=== PATIENT | female | born 2000 | race Caucasian/White ===

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

== ENCOUNTER → 2019-03-16 | Outpatient (REF) | payer BC, OTHER | LOC: M LABDRAW1 13:48 | PROVIDERS: ATTEND Nurse Practitioner Family | DX: E23.0 Hypopituitarism (principal) ==

== ENCOUNTER → 2020-11-04 | Outpatient (CLI) | payer BC ==
[~2020-11-04] MED LIST changes: +LISI10TA22; -LISI10TA4; +PROHANCE 279.3MG/ML 15ML VIAL As Ordered ONE; +PROHANCE 279.3MG/ML 5ML VIAL As Ordered ONE
--- NOTE | 2020-11-05 08:47 | REP ---
INDICATION: BENIGN INTRACRANIAL HYPERTENSION. 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 study shows a right frontal craniotomy. COMPARISON: Comparison brain CT study 08 March 2018.. TECHNIQUE: Axial and sagittal imaging planes are utilized for T1 and T2-weighted scans. Sequences include spin-echo, fast spin echo, FLAIR, and diffusion weighted sequences. Post gadolinium enhanced imaging is acquired in all 3 planes. The gadolinium enhancement dose is 20 mL of intravenous ProHance. FINDINGS: Magnetic field susceptibility artifact is seen at several locations in the right frontal cranium consistent with prior right frontal craniotomy. No other bony calvarial lesion is seen. Craniocervical junction upper cervical cord are normal in appearance. There are 2 fairly sizable mucous retention cysts in the right maxillary sinus and 1 in the left maxillary sinus inferiorly. Otherwise, the paranasal sinuses appear clear. No intraorbital abnormality is seen. There is a linear tract lined by hemosiderin staining in the right frontal periventricular white matter which was likely related to a prior ventricular shunt. There does not appear to be a shunt in place. Lateral, 3rd and 4th ventricles are normal in size and position. No extra-axial fluid collection is seen. No abnormal dural thickening is appreciated. No mass or midline shift is observed. There is a curvilinear low T1 low T2 signal intensity area in the supraclinoid region of the right internal carotid artery which I suspect is a flow void. A right ICA aneurysm cannot be excluded. Conceivably, this could be related to previous surgical history. There is a calcification visible on CT study in the region of the dorsum sella. No other vascular abnormality is appreciated. If this represents an internal carotid artery aneurysm, it would be fairly large measuring 6-7 mm. MR angiography of the brain is recommended. The suprasellar cistern is not well seen on the precontrast study. Postcontrast imaging demonstrates abnormal contrast enhancement in the distribution of the optic chiasm. The contrast enhancement appears predominantly peripheral. No mehdi mass effect. The pituitary stalk is not visualized. No other abnormal contrast enhancement is appreciated. IMPRESSION: 1. Prior right frontal craniotomy with evidence of prior right frontal ventriculostomy tube tract. 2. Apparent curvilinear flow void in the supraclinoid segment of the right internal carotid artery rule out shields aneurysm versus postoperative artifact. 3. Abnormal contrast enhancement in the region of the optic chiasm, neuritis versus meningioma. RECOMMENDATION: MR angiography of the brain. The suprasellar cistern and optic chiasm may be better visualized by pituitary protocol MRI study with pre and postcontrast imaging. <Electronically signed by Zhen Reed > 11/05/20 [id number]
--- NOTE | 2020-11-05 09:03 | REP ---
INDICATION: BENIGN INTRACRANIAL HYPERTENSION. 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 study shows a frayed frontal craniotomy. COMPARISON: Comparison CT brain study March 08, 2018.. No other comparison studies available at this juncture. TECHNIQUE: Axial, coronal and sagittal imaging planes utilized. T1 and T2 weighted scans are included with without fat saturation. 20 mL of intravenous ProHance is administered and postcontrast imaging is acquired. FINDINGS: There are mucous retention cysts visible in the floor of the right maxillary sinus. Otherwise the visualized paranasal sinuses are clear. No intraorbital mass lesion is seen. The intraorbital segments of the optic nerves appear normal and symmetric with no abnormal nerve sheath or nerve enhancement appreciated. Extraocular muscles are normal in size and contour. Ocular globes are normal and symmetric. The distal internal carotid artery on the right appears dilated on pre and postcontrast images, rule out 7 mm aneurysm. There is an irregular 8 mm area of low T1 low T2 signal intensity material in the suprasellar cistern in the region of the optic chiasm. This corresponds with the calcification visible on CT study of the brain from March 08, 2018. Postcontrast images show heterogeneous, predominantly peripheral enhancement associated with this. A thin pituitary stalk is visible. I do not otherwise see the optic chiasm. IMPRESSION: 1. 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 2. There is a triangular 8 mm structure in the suprasellar cistern in the midline showing heterogeneous contrast enhancement and likely corresponding to a calcification density seen in this location on prior CT. Postoperative change versus residual optic chiasm lesion. <Electronically signed by Zhen Reed > 11/05/20 [id number]
== END ==
LOC: M RAD 15:51
PROVIDERS: ATTEND Ophthalmology
DX: G93.2 Benign intracranial hypertension (principal); J34.1 Cyst and mucocele of nose and nasal sinus; H47.49 Disorders of optic chiasm in (due to) other disorders
CPT/HCPCS: 70543; 70553; A9576

== ENCOUNTER 2022-03-11 01:24 | Emergency (ER) | payer BC ==
[~2022-03-11] VITALS: Ht 180.3 cm; Wt 136.4 kg
[~2022-03-11 01:24] MED LIST changes: -PROHANCE 279.3MG/ML 15ML VIAL As Ordered ONE; -PROHANCE 279.3MG/ML 5ML VIAL As Ordered ONE
[2022-03-11 01:27] VITALS: BP 183/105
== END 2022-03-11 03:56 | disposition left against medical advice (07) ==
LOC: M ED 01:24
DX: Z53.21 Procedure and treatment not carried out due to patient leaving prior to being seen by health care provider (principal)

== ENCOUNTER 2022-09-14 17:25 | Inpatient (IN) | payer BC, OTHER, SELFPAY ==
[~2022-09-14] VITALS: Ht 180.3 cm; Wt 137.7 kg
[~2022-09-14 17:25] MED LIST changes: -CORT10TA; +CORT10TA PO; -LISI10TA22; +LISI10TA22 PO
[2022-09-14] MEDS ORDERED: LEVO300T21 PO (19:01)
[2022-09-14] MEDS ORDERED: ACET-897 PO ×2 (19:03)
[2022-09-14] MEDS ORDERED: HOME MED LIST COMPLETE! XX SCH (19:05)
[2022-09-14 20:42] LABS: AMPHETAMINES LEVEL URINE NEGATIVE (NEGATIVE); BENZODIAZEPINES URINE NEGATIVE (NEGATIVE); CANNABINOIDS URINE NEGATIVE (NEGATIVE); PHENCYCLIDINE URINE NEGATIVE (NEGATIVE)
[2022-09-14 20:43] LABS: BARBITURATES URINE NEGATIVE (NEGATIVE); COCAINE METABOLITE URINE NEGATIVE (NEGATIVE); METHADONE URINE NEGATIVE (NEGATIVE); OPIATES URINE NEGATIVE (NEGATIVE)
[2022-09-14 20:49] LABS: MEAN CORPUSCULAR HEMOGLOBIN 30.6 pg (27.0-33.0); MEAN CORPUSCULAR HGB CONC 34.2 g/dl (32.0-36.5); MEAN CORPUSCULAR VOLUME 89.4 fl (80.0-96.0); PLATELET COUNT, AUTOMATED 204 10^3/uL (150-450); RED BLOOD COUNT 4.25 10^6/uL (4.00-5.40); WHITE BLOOD COUNT 5.6 10^3/uL (4.0-10.0)
[2022-09-14 21:23] LABS: ALBUMIN 3.9 G/DL (3.2-5.2); ALKALINE PHOSPHATASE 84 U/L (46-116); ALT/SGPT 75 U/L (7.0-40); AST/SGOT 67 U/L (<34); BILIRUBIN,TOTAL 3.6 MG/DL (0.3-1.2); BLOOD UREA NITROGEN 12 MG/DL (9-23); CALCIUM LEVEL 9.4 MG/DL (8.5-10.1); CARBON DIOXIDE LEVEL 28 MMOL/L (20-31); CHLORIDE LEVEL 109 MMOL/L (98-107); CREATININE FOR GFR 0.94 MG/DL (0.55-1.30); GLOMERULAR FILTRATION RATE > 60.0 (>60); GLUCOSE, FASTING 121 MG/DL (60-100); POTASSIUM SERUM 4.2 MMOL/L (3.5-5.1); SALICYLATE LEVEL < 3.0 MG/DL (<30); SODIUM LEVEL 143 MMOL/L (136-145); TOTAL PROTEIN 6.9 G/DL (5.7-8.2)
[2022-09-14 21:28] LABS: ACETAMINOPHEN LEVEL < 2.0 UG/ML (10.0-20.0)
[2022-09-14 21:39] LABS: HCG, SERUM QUALITATIVE NEGATIVE (NEGATIVE)
[2022-09-14] MEDS ORDERED: traZODone 50 MG TAB PO PRN (21:45)
[2022-09-14] MEDS ORDERED: ACETAMINOPHEN 500 MG TAB PO PRN (21:45)
[2022-09-14] MEDS ORDERED: MAALOX 30 ML SUSP *UDC PO PRN (21:45)
[2022-09-14] MEDS ORDERED: MOM 30ML SUSPENSION UDC PO PRN (21:45)
[2022-09-14 23:14] VITALS: BP 140/80
[2022-09-15] MEDS: LEVOTHYROXINE 150MCG TABLET (0.15MG) PO SCH (06:04)
[2022-09-15 06:42] VITALS: BP 135/78
[2022-09-15] MEDS: NICOTINE 21MG/24HR 1 EA TRANSDERMAL TD SCH (09:00)
[2022-09-15] MEDS: ACETAMINOPHEN 500 MG TAB PO PRN ×2 (09:34→21:18)
[2022-09-15] MEDS: DESMOPRESSIN 0.01% SCH (09:36)
[2022-09-15] MEDS ORDERED: INFLUENZA QUADRIVALENT PF VACCINE 0.5ML SYRINGE IM.IMMUN ONE (10:00)
[2022-09-15] MEDS: VENLAFAXINE **XR** 37.5 MG CAPSULE PO SCH (11:25)
[2022-09-15] MEDS: HYDROCORTISONE 10 MG TAB PO SCH ×2 (12:33→20:09)
[2022-09-15 12:34] LABS: FREE T4 0.45 NG/DL (0.89-1.76)
[2022-09-15 16:21] VITALS: BP 126/79
[2022-09-15] MEDS: diphenhydrAMINE 25MG CAP PO PRN (22:03)
[2022-09-15 23:43] VITALS: BP 134/89
[2022-09-16] MEDS: LEVOTHYROXINE 150MCG TABLET (0.15MG) PO SCH (06:17)
[2022-09-16 06:21] VITALS: BP 125/76
[2022-09-16] MEDS: NICOTINE 21MG/24HR 1 EA TRANSDERMAL TD SCH (07:51)
[2022-09-16] MEDS: DESMOPRESSIN 0.01% SCH (07:53)
[2022-09-16] MEDS: HYDROCORTISONE 10 MG TAB PO SCH (07:54)
[2022-09-16] MEDS: VENLAFAXINE **XR** 37.5 MG CAPSULE PO SCH (07:54)
[2022-09-16 09:20] LABS: ALBUMIN 4.2 G/DL (3.2-5.2); ALKALINE PHOSPHATASE 83 U/L (46-116); ALT/SGPT 56 U/L (7.0-40); AST/SGOT 44 U/L (<34); BILIRUBIN,TOTAL 3.8 MG/DL (0.3-1.2); BLOOD UREA NITROGEN 12 MG/DL (9-23); CALCIUM LEVEL 9.1 MG/DL (8.5-10.1); CARBON DIOXIDE LEVEL 25 MMOL/L (20-31); CHLORIDE LEVEL 108 MMOL/L (98-107); CREATININE FOR GFR 0.89 MG/DL (0.55-1.30); GLOMERULAR FILTRATION RATE > 60.0 (>60); GLUCOSE, FASTING 124 MG/DL (60-100); POTASSIUM SERUM 4.4 MMOL/L (3.5-5.1); SODIUM LEVEL 141 MMOL/L (136-145); TOTAL PROTEIN 7.2 G/DL (5.7-8.2)
[2022-09-16] MEDS: diphenhydrAMINE 25MG CAP PO PRN (12:08)
[2022-09-16] MEDS ORDERED: MECLIZINE 12.5 MG TAB PO PRN ×2 (15:00→22:37)
[2022-09-16 16:21] VITALS: BP 125/79
[2022-09-16 20:42] VITALS: BP 130/91
[2022-09-16 20:44] VITALS: BP 168/95
[2022-09-16 20:45] VITALS: BP 170/123
[2022-09-16] MEDS ORDERED: ANUSOL HC CREAM 30GM TOP SCH (21:00)
[2022-09-16] MEDS ORDERED: ONDANSETRON 4MG ORAL DISINTEGRATING TAB PO PRN (21:00)
[2022-09-16] MEDS ORDERED: TRAZ-252 PO (22:19)
[2022-09-16] MEDS ORDERED: MECL-136 PO (22:19)
[2022-09-16] MEDS ORDERED: NICO21PAT TD (22:19)
[2022-09-16] MEDS ORDERED: ONDA4TAB6 PO (22:19)
[2022-09-16] MEDS ORDERED: VENL37.598 PO (22:19)
[2022-09-16] MEDS ORDERED: IBUPROFEN 400MG TAB PO PRN (22:37)
[2022-09-16] MEDS ORDERED: ACETAMINOPHEN TAB 650MG DOSE (2X325MG) PO PRN (22:37)
[2022-09-17] MEDS ORDERED: LEVOTHYROXINE 150MCG TABLET (0.15MG) PO SCH (06:00)
[2022-09-17] MEDS ORDERED: LEVOTHYROXINE 100MCG TABLET (0.1MG) PO SCH (06:00)
[2022-09-17] MEDS ORDERED: HYDROCORTISONE 5MG TABLET PO SCH ×2 (09:00→14:00)
[2022-09-17] MEDS ORDERED: DESMOPRESSIN 0.01% SCH (09:00)
[2022-09-17] MEDS ORDERED: DESMOPRESSIN 0.01% ONE (21:00)
[2022-09-18] MEDS ORDERED: CORT5TAB2 PO ×2 (13:43)
[2022-09-18] MEDS ORDERED: METO1TAB87 PO ×2 (13:43→14:13)
[2022-09-18] MEDS ORDERED: LEVO125T4 PO (13:43)
[2022-09-18] MEDS ORDERED: IBUP-1114 PO (14:13)
[2022-09-18] MEDS ORDERED: ASPI81TAEC PO (14:13)
[2022-09-18] MEDS ORDERED: DESM10SP (14:13)
[2022-09-18] MEDS ORDERED: PROT20TA11 PO (14:13)
[2022-09-18 18:28] VITALS: BP 123/84
[2022-09-18] MEDS: DOCUSATE SODIUM 100MG CAPSULE PO SCH (20:09)
[2022-09-18] MEDS: METOPROLOL TART 12.5 MG PER 1/2 TAB PO SCH (20:09)
[2022-09-18] MEDS ORDERED: DESMOPRESSIN 0.01% SCH (21:00)
[2022-09-18] MEDS: DESMOPRESSIN 0.01% SCH (21:56)
[2022-09-19] MEDS ORDERED: LEVOTHYROXINE 125MCG TABLET (0.125MG) PO SCH (06:00)
[2022-09-19 06:45] VITALS: BP 135/83
[2022-09-19] MEDS: DOCUSATE SODIUM 100MG CAPSULE PO SCH ×2 (08:21→20:48)
[2022-09-19] MEDS: ASPIRIN 81MG ENTERIC TABLET PO SCH (08:21)
[2022-09-19] MEDS: HYDROCORTISONE 5MG TABLET PO SCH ×2 (08:22→13:38)
[2022-09-19] MEDS: VENLAFAXINE **XR** 37.5 MG CAPSULE PO SCH (08:22)
[2022-09-19] MEDS: METOPROLOL TART 12.5 MG PER 1/2 TAB PO SCH ×2 (08:23→20:48)
[2022-09-19] MEDS ORDERED: hydrOXYzine 50 MG TAB PO PRN (10:40)
[2022-09-19] MEDS ORDERED: MAALOX 30 ML SUSP *UDC PO PRN (15:15)
[2022-09-19] MEDS ORDERED: MOM 30ML SUSPENSION UDC PO PRN (15:15)
[2022-09-19 16:19] VITALS: BP 131/83
[2022-09-19] MEDS: DESMOPRESSIN 0.01% SCH (20:47)
[2022-09-20] MEDS: LEVOTHYROXINE 125MCG TABLET (0.125MG) PO SCH (06:10)
[2022-09-20] MEDS: LEVOTHYROXINE 100MCG TABLET (0.1MG) PO SCH (06:10)
[2022-09-20 06:52] VITALS: BP 143/91
[2022-09-20 08:45] VITALS: BP 160/112
[2022-09-20] MEDS: HYDROCORTISONE 5MG TABLET PO SCH ×2 (09:29→13:58)
[2022-09-20] MEDS: DOCUSATE SODIUM 100MG CAPSULE PO SCH ×2 (09:30→21:00)
[2022-09-20] MEDS: ASPIRIN 81MG ENTERIC TABLET PO SCH (09:30)
[2022-09-20] MEDS: VENLAFAXINE **XR** 37.5 MG CAPSULE PO SCH (09:30)
[2022-09-20] MEDS: METOPROLOL TART 25 MG TABLET PO SCH ×2 (09:31→22:18)
[2022-09-20 09:33] LABS: HEMATOCRIT 35.1 % (36.0-47.0); HEMOGLOBIN 12.4 g/dl (12.0-15.5); MEAN CORPUSCULAR HEMOGLOBIN 30.8 pg (27.0-33.0); MEAN CORPUSCULAR HGB CONC 35.3 g/dl (32.0-36.5); MEAN CORPUSCULAR VOLUME 87.3 fl (80.0-96.0); PLATELET COUNT, AUTOMATED 209 10^3/uL (150-450); RED BLOOD COUNT 4.02 10^6/uL (4.00-5.40); WHITE BLOOD COUNT 7.5 10^3/uL (4.0-10.0)
[2022-09-20 09:55] LABS: BLOOD UREA NITROGEN 15 MG/DL (9-23); CALCIUM LEVEL 8.9 MG/DL (8.5-10.1); CARBON DIOXIDE LEVEL 27 MMOL/L (20-31); CHLORIDE LEVEL 109 MMOL/L (98-107); CPK CREATINE PHOSPHOKINASE 265 U/L (34-145); CREATININE FOR GFR 0.84 MG/DL (0.55-1.30); GLOMERULAR FILTRATION RATE > 60.0 (>60); GLUCOSE, FASTING 83 MG/DL (60-100); MB/CK RELATIVE INDEX 0.37 (< OR =4); SODIUM LEVEL 141 MMOL/L (136-145)
[2022-09-20 16:30] VITALS: BP 116/75
[2022-09-20] MEDS: DESMOPRESSIN 0.01% SCH (22:18)
[2022-09-21] MEDS: LEVOTHYROXINE 100MCG TABLET (0.1MG) PO SCH (05:38)
[2022-09-21] MEDS: LEVOTHYROXINE 125MCG TABLET (0.125MG) PO SCH (05:38)
[2022-09-21 06:26] VITALS: BP 123/78
[2022-09-21] MEDS: VENLAFAXINE **XR** 37.5 MG CAPSULE PO SCH (08:51)
[2022-09-21] MEDS: HYDROCORTISONE 5MG TABLET PO SCH (08:54)
[2022-09-21] MEDS: METOPROLOL TART 25 MG TABLET PO SCH (08:54)
[2022-09-21 08:55] VITALS: BP 133/95
[2022-09-21] MEDS: ASPIRIN 81MG ENTERIC TABLET PO SCH (08:55)
[2022-09-21] MEDS: DOCUSATE SODIUM 100MG CAPSULE PO SCH (08:57)
[2022-09-21] MEDS ORDERED: HYDR50TA70 PO (12:18)
[2022-09-21] MEDS ORDERED: MECL-136 PO (12:18)
[2022-09-21] MEDS ORDERED: VENL37.598 PO (12:18)
[2022-09-21] MEDS ORDERED: ASPI81TAEC PO (12:18)
[2022-09-21] MEDS ORDERED: METO1TAB87 PO (12:18)
[2022-09-21] MEDS ORDERED: LISI10TA22 PO (12:18)
[2022-09-21] MEDS ORDERED: DESM10SP (12:18)
== END 2022-09-21 13:21 | disposition home or self-care (01) | DRG 754 ==
LOC: M ED 17:25 → M ED INP 21:42 → M PSY 23:29 → UNDODISIN 09-16 22:37 → M PSY 09-18 17:21
PROVIDERS: ADMIT Student in an Organized Health Care Education/Training Program; ATTEND Student in an Organized Health Care Education/Training Program
DX: F32.A Depression, unspecified (principal); E23.0 Hypopituitarism; R45.851 Suicidal ideations; E66.01 Morbid (severe) obesity due to excess calories; F60.2 Antisocial personality disorder; F60.3 Borderline personality disorder; F68.10 Factitious disorder imposed on self, unspecified; I10 Essential (primary) hypertension; F41.9 Anxiety disorder, unspecified; Z88.2 Allergy status to sulfonamides; Z79.899 Other long term (current) drug therapy; Z92.3 Personal history of irradiation; E03.9 Hypothyroidism, unspecified; R00.2 Palpitations

== ENCOUNTER 2022-09-16 22:18 | Inpatient (IN) | payer OTHER ==
[~2022-09-16] VITALS: Ht 180.3 cm; Wt 139.6 kg
[2022-09-16] MEDS: DOCUSATE SODIUM 100MG CAPSULE PO SCH (21:00)
[~2022-09-16 22:18] MED LIST changes: +ACET-897 PO; +LEVO300T21 PO
[2022-09-16] MEDS ORDERED: ONDA4TAB6 PO (22:19)
[2022-09-16] MEDS ORDERED: NICO21PAT TD (22:19)
[2022-09-16] MEDS ORDERED: MECL-136 PO (22:19)
[2022-09-16] MEDS ORDERED: TRAZ-252 PO (22:19)
[2022-09-16] MEDS ORDERED: VENL37.598 PO (22:19)
[2022-09-16] MEDS ORDERED: METOPROLOL TART 50 MG TAB PO STA (22:21)
[2022-09-16] MEDS ORDERED: METOPROLOL 5 MG/5 ML VIAL IV STA (22:21)
[2022-09-16 22:45] VITALS: BP 157/69
[2022-09-16] MEDS ORDERED: MECLIZINE 12.5 MG TAB PO PRN (23:15)
[2022-09-16 23:17] LABS: HEMOGLOBIN 11.6 g/dl (12.0-15.5); MEAN CORPUSCULAR HEMOGLOBIN 30.4 pg (27.0-33.0); MEAN CORPUSCULAR HGB CONC 34.1 g/dl (32.0-36.5); PLATELET COUNT, AUTOMATED 182 10^3/uL (150-450); RED BLOOD COUNT 3.82 10^6/uL (4.00-5.40); WHITE BLOOD COUNT 5.9 10^3/uL (4.0-10.0)
[2022-09-16 23:28] LABS: INR 1.04; PROTHROMBIN TIME 13.8 SECONDS (12.5-14.5)
[2022-09-16] MEDS ORDERED: KETOROLAC 30 MG/ML 1ML VIAL IV ONE (23:30)
[2022-09-16] MEDS ORDERED: HOME MED LIST COMPLETE! XX SCH (23:35)
[2022-09-16 23:54] LABS: CPK CREATINE PHOSPHOKINASE 503 U/L (34-145)
[2022-09-17] VITALS (11 sets, daily range): BP systolic 101–157; BP diastolic 65–96
[2022-09-17 00:01] LABS: ALBUMIN 3.9 G/DL (3.2-5.2); ALKALINE PHOSPHATASE 74 U/L (46-116); ALT/SGPT 51 U/L (7.0-40); AST/SGOT 35 U/L (<34); BILIRUBIN,TOTAL 2.8 MG/DL (0.3-1.2); BLOOD UREA NITROGEN 14 MG/DL (9-23); CALCIUM LEVEL 8.9 MG/DL (8.5-10.1); CARBON DIOXIDE LEVEL 26 MMOL/L (20-31); CHLORIDE LEVEL 110 MMOL/L (98-107); CREATININE FOR GFR 0.87 MG/DL (0.55-1.30); GLOMERULAR FILTRATION RATE > 60.0 (>60); GLUCOSE, FASTING 97 MG/DL (60-100); MB/CK RELATIVE INDEX 0.39 (< OR =4); POTASSIUM SERUM 3.5 MMOL/L (3.5-5.1); SODIUM LEVEL 142 MMOL/L (136-145); TOTAL PROTEIN 6.5 G/DL (5.7-8.2)
[2022-09-17] MEDS ORDERED: KETOROLAC TROMETHAMINE 10 MG TAB PO ONE (01:00)
[2022-09-17] MEDS ORDERED: MORPHINE 2 MG/ML 1ML VIAL IV ONE (01:20)
[2022-09-17] MEDS ORDERED: MORPHINE 4 MG/ML 1ML VIAL IV ONE (02:10)
[2022-09-17 05:56] LABS: HEMATOCRIT 33.5 % (36.0-47.0); HEMOGLOBIN 11.3 g/dl (12.0-15.5); MEAN CORPUSCULAR HEMOGLOBIN 30.5 pg (27.0-33.0); MEAN CORPUSCULAR HGB CONC 33.7 g/dl (32.0-36.5); MEAN CORPUSCULAR VOLUME 90.3 fl (80.0-96.0); PLATELET COUNT, AUTOMATED 177 10^3/uL (150-450); RED BLOOD COUNT 3.71 10^6/uL (4.00-5.40); WHITE BLOOD COUNT 5.7 10^3/uL (4.0-10.0)
[2022-09-17] MEDS ORDERED: METOPROLOL TART 25 MG TABLET PO SCH ×2 (06:00→09:00)
[2022-09-17] MEDS: LEVOTHYROXINE 125MCG TABLET (0.125MG) PO SCH (06:01)
[2022-09-17 06:19] LABS: ALBUMIN 3.7 G/DL (3.2-5.2); ALKALINE PHOSPHATASE 71 U/L (46-116); ALT/SGPT 62 U/L (7.0-40); AST/SGOT 76 U/L (<34); BILIRUBIN,TOTAL 2.4 MG/DL (0.3-1.2); BLOOD UREA NITROGEN 16 MG/DL (9-23); CALCIUM LEVEL 8.9 MG/DL (8.5-10.1); CARBON DIOXIDE LEVEL 25 MMOL/L (20-31); CHLORIDE LEVEL 110 MMOL/L (98-107); CREATININE FOR GFR 0.95 MG/DL (0.55-1.30); GLOMERULAR FILTRATION RATE > 60.0 (>60); GLUCOSE, FASTING 103 MG/DL (60-100); MAGNESIUM LEVEL 2.1 MG/DL (1.8-2.4); POTASSIUM SERUM 4.2 MMOL/L (3.5-5.1); SODIUM LEVEL 143 MMOL/L (136-145); TOTAL PROTEIN 6.4 G/DL (5.7-8.2)
[2022-09-17] MEDS ORDERED: ONDANSETRON 4MG 2ML VIAL IV ONE (06:50)
[2022-09-17 08:23] LABS: CORTISOL AM 0.5 UG/DL (4.3-22.4)
[2022-09-17 08:27] LABS: FREE T3 2.7 PG/ML (2.3-4.2); THYROID STIMULATING HORMONE 4.178 uIU/ML (0.55-4.78)
[2022-09-17 08:28] LABS: FREE T4 0.73 NG/DL (0.89-1.76)
[2022-09-17] MEDS ORDERED: DESMOPRESSIN 0.01% ONE ×2 (09:00→21:00)
[2022-09-17] MEDS ORDERED: ASPIRIN 325 MG TAB PO SCH (09:00)
[2022-09-17] MEDS: DOCUSATE SODIUM 100MG CAPSULE PO SCH ×3 (09:00→21:00)
[2022-09-17] MEDS: VENLAFAXINE **XR** 37.5 MG CAPSULE PO SCH (09:57)
[2022-09-17] MEDS: HYDROCORTISONE 5MG TABLET PO SCH ×2 (09:57→13:39)
[2022-09-17] MEDS: ACETAMINOPHEN TAB 650MG DOSE (2X325MG) PO PRN ×2 (10:10→21:13)
[2022-09-17] MEDS: METOPROLOL TART 12.5 MG PER 1/2 TAB PO SCH ×2 (10:27→20:57)
[2022-09-17] MEDS ORDERED: ASPIRIN 81MG ENTERIC TABLET PO SCH (13:45)
[2022-09-17] MEDS ORDERED: LIDOCAINE 5% (LIDODERM) PATCH TD ONE (22:30)
[2022-09-18 00:33] VITALS: BP 118/69
[2022-09-18 04:02] VITALS: BP 147/84
[2022-09-18] MEDS: LEVOTHYROXINE 125MCG TABLET (0.125MG) PO SCH (05:53)
[2022-09-18 06:22] LABS: BASO # 0.1 10^3/uL (0.0-0.2); BASO % 0.9 % (0.0-1.0); EOS # 0.4 10^3/uL (0.0-0.5); HEMATOCRIT 33.2 % (36.0-47.0); HEMOGLOBIN 11.2 g/dl (12.0-15.5); LYMPH # 3.4 10^3/uL (1.5-5.0); LYMPH % 58.4 % (24.0-44.0); MEAN CORPUSCULAR HEMOGLOBIN 30.2 pg (27.0-33.0); MEAN CORPUSCULAR HGB CONC 33.7 g/dl (32.0-36.5); MEAN CORPUSCULAR VOLUME 89.5 fl (80.0-96.0); MONO # 0.2 10^3/uL (0.0-0.8); MONO % 3.1 % (2.0-8.0); NEUTROPHILS # 1.8 10^3/uL (1.5-8.5); NEUTROPHILS % 31.4 % (36.0-66.0); PLATELET COUNT, AUTOMATED 184 10^3/uL (150-450); RED BLOOD COUNT 3.71 10^6/uL (4.00-5.40); WHITE BLOOD COUNT 5.8 10^3/uL (4.0-10.0)
[2022-09-18 07:01] LABS: ALBUMIN 3.5 G/DL (3.2-5.2); ALKALINE PHOSPHATASE 69 U/L (46-116); ALT/SGPT 58 U/L (7.0-40); AST/SGOT 41 U/L (<34); BLOOD UREA NITROGEN 18 MG/DL (9-23); CALCIUM LEVEL 8.5 MG/DL (8.5-10.1); CARBON DIOXIDE LEVEL 25 MMOL/L (20-31); CHLORIDE LEVEL 110 MMOL/L (98-107); CREATININE FOR GFR 0.89 MG/DL (0.55-1.30); GLOMERULAR FILTRATION RATE > 60.0 (>60); GLUCOSE, FASTING 100 MG/DL (60-100); SODIUM LEVEL 142 MMOL/L (136-145)
[2022-09-18 07:47] VITALS: BP 133/94
[2022-09-18] MEDS ORDERED: IBUPROFEN 400MG TAB PO PRN (09:10)
[2022-09-18] MEDS ORDERED: ISOVUE-370 76% 100ML VIAL As Ordered ONE (09:21)
[2022-09-18] MEDS ORDERED: METOPROLOL 5 MG/5 ML VIAL As Ordered ONE (09:35)
[2022-09-18] MEDS: DOCUSATE SODIUM 100MG CAPSULE PO SCH (09:41)
[2022-09-18] MEDS: METOPROLOL TART 12.5 MG PER 1/2 TAB PO SCH (09:42)
[2022-09-18 09:43] VITALS: BP 147/95
[2022-09-18] MEDS: VENLAFAXINE **XR** 37.5 MG CAPSULE PO SCH (09:43)
[2022-09-18] MEDS: HYDROCORTISONE 5MG TABLET PO SCH ×2 (09:44→14:19)
[2022-09-18] MEDS ORDERED: METO1TAB87 PO ×2 (13:43→14:13)
[2022-09-18] MEDS ORDERED: CORT5TAB2 PO ×2 (13:43)
[2022-09-18] MEDS ORDERED: LEVO125T4 PO (13:43)
[2022-09-18] MEDS ORDERED: IBUP-1114 PO (14:13)
[2022-09-18] MEDS ORDERED: PROT20TA11 PO (14:13)
[2022-09-18] MEDS ORDERED: DESM10SP (14:13)
[2022-09-18] MEDS ORDERED: ASPI81TAEC PO (14:13)
[2022-09-18] MEDS: ACETAMINOPHEN TAB 650MG DOSE (2X325MG) PO PRN (14:19)
[2022-09-18] MEDS ORDERED: DESMOPRESSIN 0.01% SCH (21:00)
== END 2022-09-18 18:00 | DRG 201 ==
LOC: M ED INP 22:19 → M PCU 22:44
PROVIDERS: ADMIT Internal Medicine; ATTEND Internal Medicine
PROC: B246ZZZ Ultrasonography of Right and Left Heart (ICD-10-PCS; principal; 2022-09-17)
DX: I48.0 Paroxysmal atrial fibrillation (principal); Z68.41 Body mass index [BMI] 40.0-44.9, adult; E66.2 Morbid (severe) obesity with alveolar hypoventilation; E23.0 Hypopituitarism; I08.1 Rheumatic disorders of both mitral and tricuspid valves; K76.0 Fatty (change of) liver, not elsewhere classified; F41.8 Other specified anxiety disorders; I10 Essential (primary) hypertension; R74.01 Elevation of levels of liver transaminase levels; Z79.890 Hormone replacement therapy; Z79.899 Other long term (current) drug therapy; Z88.2 Allergy status to sulfonamides; Z90.49 Acquired absence of other specified parts of digestive tract

== ENCOUNTER 2022-10-07 13:46 | Inpatient (IN) | payer OTHER ==
[~2022-10-07] VITALS: Ht 180.3 cm; Wt 138.6 kg
[~2022-10-07 13:46] MED LIST changes: +ASPI81TAEC PO; +CORT5TAB2 PO; +HYDR50TA70 PO; +IBUP-1114 PO; +LEVO125T4 PO; +MECL-136 PO; +METO1TAB87 PO; +NICO21PAT TD; +ONDA4TAB6 PO; +PROT20TA11 PO; +TRAZ-252 PO; +VENL37.598 PO
[2022-10-07 16:30] LABS: HEMATOCRIT 36.1 % (36.0-47.0); MEAN CORPUSCULAR HEMOGLOBIN 30.1 pg (27.0-33.0); MEAN CORPUSCULAR HGB CONC 33.2 g/dl (32.0-36.5); MEAN CORPUSCULAR VOLUME 90.5 fl (80.0-96.0); PLATELET COUNT, AUTOMATED 226 10^3/uL (150-450); RED BLOOD COUNT 3.99 10^6/uL (4.00-5.40); WHITE BLOOD COUNT 8.7 10^3/uL (4.0-10.0)
[2022-10-07 16:55] LABS: ETHYL ALCOHOL (ETHANOL) < 0.003 % (0.000-0.010)
[2022-10-07 16:57] LABS: ACETAMINOPHEN LEVEL < 2.0 UG/ML (10.0-20.0); ALBUMIN 3.8 G/DL (3.2-5.2); ALKALINE PHOSPHATASE 112 U/L (46-116); ALT/SGPT 58 U/L (7.0-40); AST/SGOT 27 U/L (<34); BILIRUBIN,DIRECT 0.4 MG/DL (<0.4); BILIRUBIN,TOTAL 1.2 MG/DL (0.3-1.2); BLOOD UREA NITROGEN 16 MG/DL (9-23); CALCIUM LEVEL 8.9 MG/DL (8.5-10.1); CARBON DIOXIDE LEVEL 27 MMOL/L (20-31); CHLORIDE LEVEL 104 MMOL/L (98-107); CREATININE FOR GFR 0.73 MG/DL (0.55-1.30); GLOMERULAR FILTRATION RATE > 60.0 (>60); GLUCOSE, FASTING 75 MG/DL (60-100); POTASSIUM SERUM 4.5 MMOL/L (3.5-5.1); SALICYLATE LEVEL < 3.0 MG/DL (<30); SODIUM LEVEL 139 MMOL/L (136-145); TOTAL PROTEIN 7.2 G/DL (5.7-8.2)
[2022-10-07 16:59] LABS: THYROID STIMULATING HORMONE 0.106 uIU/ML (0.55-4.78)
[2022-10-07 17:06] LABS: AMPHETAMINES LEVEL URINE NEGATIVE (NEGATIVE); CANNABINOIDS URINE NEGATIVE (NEGATIVE); PHENCYCLIDINE URINE NEGATIVE (NEGATIVE)
[2022-10-07 17:07] LABS: BARBITURATES URINE NEGATIVE (NEGATIVE); BENZODIAZEPINES URINE NEGATIVE (NEGATIVE); COCAINE METABOLITE URINE NEGATIVE (NEGATIVE); METHADONE URINE NEGATIVE (NEGATIVE); OPIATES URINE NEGATIVE (NEGATIVE)
[2022-10-07 17:27] LABS: HCG, SERUM QUALITATIVE NEGATIVE (NEGATIVE)
[2022-10-07] MEDS ORDERED: HYDR-4468 PO (20:42)
[2022-10-07] MEDS ORDERED: LEVO300T21 PO (20:42)
[2022-10-07] MEDS ORDERED: HOME MED LIST COMPLETE! XX SCH (20:45)
[2022-10-07] MEDS ORDERED: MOM 30ML SUSPENSION UDC PO PRN (20:50)
[2022-10-07] MEDS ORDERED: MAALOX 30 ML SUSP *UDC PO PRN (20:50)
[2022-10-08] MEDS: hydrOXYzine 50 MG TAB PO PRN ×2 (00:55→20:13)
[2022-10-08 01:15] VITALS: BP 134/86
[2022-10-08] MEDS: METOPROLOL TART 25 MG TABLET PO SCH ×3 (01:29→20:15)
[2022-10-08] MEDS: DESMOPRESSIN 0.01% SCH ×2 (01:30→20:14)
[2022-10-08] MEDS: traZODone 50 MG TAB PO PRN (01:32)
[2022-10-08] MEDS ORDERED: LEVOTHYROXINE 150MCG TABLET (0.15MG) PO SCH (06:00)
[2022-10-08] MEDS: HYDROCORTISONE 5MG TABLET PO SCH ×2 (08:33→14:06)
[2022-10-08] MEDS: VENLAFAXINE **XR** 37.5 MG CAPSULE PO SCH (08:33)
[2022-10-08] MEDS: ASPIRIN 81MG ENTERIC TABLET PO SCH (08:33)
[2022-10-08 09:32] LABS: FREE T4 1.28 NG/DL (0.89-1.76); THYROID STIMULATING HORMONE 0.087 uIU/ML (0.55-4.78)
[2022-10-08 19:02] VITALS: BP 118/74
[2022-10-09] MEDS ORDERED: LEVOTHYROXINE 150MCG TABLET (0.15MG) PO SCH ×2 (06:00)
[2022-10-09] MEDS: LEVOTHYROXINE 100MCG TABLET (0.1MG) PO SCH (06:21)
[2022-10-09 06:41] VITALS: BP 119/79
[2022-10-09] MEDS: VENLAFAXINE **XR** 37.5 MG CAPSULE PO SCH (08:48)
[2022-10-09] MEDS: ASPIRIN 81MG ENTERIC TABLET PO SCH (08:49)
[2022-10-09] MEDS: METOPROLOL TART 25 MG TABLET PO SCH ×2 (08:49→20:11)
[2022-10-09] MEDS: HYDROCORTISONE 5MG TABLET PO SCH ×2 (08:49→14:25)
[2022-10-09] MEDS: hydrOXYzine 50 MG TAB PO PRN (15:54)
[2022-10-09 15:57] VITALS: BP 135/96
[2022-10-09 16:26] VITALS: BP 144/86
[2022-10-09] MEDS: DESMOPRESSIN 0.01% SCH (20:11)
[2022-10-09] MEDS: traZODone 50 MG TAB PO PRN (21:05)
[2022-10-10] MEDS: LEVOTHYROXINE 100MCG TABLET (0.1MG) PO SCH (05:30)
[2022-10-10] MEDS: ACETAMINOPHEN TAB 650MG DOSE (2X325MG) PO PRN ×2 (05:37→12:44)
[2022-10-10 06:24] VITALS: BP 130/91
[2022-10-10] MEDS: HYDROCORTISONE 5MG TABLET PO SCH ×2 (06:42→14:08)
[2022-10-10] MEDS: IBUPROFEN 800 MG TAB PO PRN ×2 (07:52→17:18)
[2022-10-10] MEDS: VENLAFAXINE **XR** 75MG CAPSULE PO SCH (08:16)
[2022-10-10] MEDS: ASPIRIN 81MG ENTERIC TABLET PO SCH (08:16)
[2022-10-10 08:17] VITALS: BP 134/87
[2022-10-10] MEDS: METOPROLOL TART 25 MG TABLET PO SCH ×2 (08:17→20:18)
[2022-10-10 18:00] VITALS: BP 124/72
[2022-10-10] MEDS: NORCO, ANEXSIA 5/325MG TABLET (HYDROcodone/ACETAMINOPHEN) PO PRN (19:52)
[2022-10-10] MEDS: DESMOPRESSIN 0.01% SCH (20:19)
[2022-10-10] MEDS: hydrOXYzine 50 MG TAB PO PRN (22:37)
[2022-10-11] MEDS: LEVOTHYROXINE 100MCG TABLET (0.1MG) PO SCH (05:36)
[2022-10-11 06:15] VITALS: BP 149/89
[2022-10-11] MEDS: HYDROCORTISONE 5MG TABLET PO SCH ×2 (06:17→13:02)
[2022-10-11] MEDS: VENLAFAXINE **XR** 75MG CAPSULE PO SCH (08:16)
[2022-10-11] MEDS: METOPROLOL TART 25 MG TABLET PO SCH ×2 (08:16→20:14)
[2022-10-11] MEDS: ASPIRIN 81MG ENTERIC TABLET PO SCH (08:16)
[2022-10-11] MEDS: IBUPROFEN 800 MG TAB PO PRN ×2 (08:17→16:38)
[2022-10-11] MEDS: ACETAMINOPHEN TAB 650MG DOSE (2X325MG) PO PRN (12:52)
[2022-10-11] MEDS: DESMOPRESSIN 0.01% SCH (20:13)
[2022-10-11] MEDS: NORCO, ANEXSIA 5/325MG TABLET (HYDROcodone/ACETAMINOPHEN) PO PRN (20:14)
[2022-10-11] MEDS: traZODone 50 MG TAB PO PRN ×2 (20:45)
[2022-10-12] MEDS: LEVOTHYROXINE 100MCG TABLET (0.1MG) PO SCH (06:13)
[2022-10-12] MEDS: HYDROCORTISONE 5MG TABLET PO SCH ×2 (06:50→13:28)
[2022-10-12] MEDS: METOPROLOL TART 25 MG TABLET PO SCH ×2 (08:22→20:55)
[2022-10-12] MEDS: VENLAFAXINE **XR** 75MG CAPSULE PO SCH (08:22)
[2022-10-12] MEDS: ASPIRIN 81MG ENTERIC TABLET PO SCH (08:23)
[2022-10-12] MEDS: IBUPROFEN 800 MG TAB PO PRN (08:23)
[2022-10-12] MEDS: ACETAMINOPHEN TAB 650MG DOSE (2X325MG) PO PRN (12:11)
[2022-10-12] MEDS: NORCO, ANEXSIA 5/325MG TABLET (HYDROcodone/ACETAMINOPHEN) PO PRN ×2 (13:02→22:29)
[2022-10-12 17:57] VITALS: BP 136/61
[2022-10-12] MEDS: DESMOPRESSIN 0.01% SCH (20:49)
[2022-10-13] MEDS: LEVOTHYROXINE 100MCG TABLET (0.1MG) PO SCH (05:41)
[2022-10-13] MEDS: HYDROCORTISONE 5MG TABLET PO SCH ×2 (06:36→13:17)
[2022-10-13] MEDS: ACETAMINOPHEN TAB 650MG DOSE (2X325MG) PO PRN ×2 (06:37→20:18)
[2022-10-13 06:51] VITALS: BP 142/84
[2022-10-13] MEDS: VENLAFAXINE **XR** 75MG CAPSULE PO SCH (08:46)
[2022-10-13] MEDS: ASPIRIN 81MG ENTERIC TABLET PO SCH (08:46)
[2022-10-13] MEDS: METOPROLOL TART 25 MG TABLET PO SCH ×2 (08:46→20:18)
[2022-10-13] MEDS: IBUPROFEN 800 MG TAB PO PRN (15:37)
[2022-10-13 16:55] VITALS: BP 146/82
[2022-10-13] MEDS: DESMOPRESSIN 0.01% SCH (20:18)
[2022-10-13] MEDS: traZODone 50 MG TAB PO PRN (21:44)
[2022-10-14] MEDS: HYDROCORTISONE 5MG TABLET PO SCH ×2 (06:13→13:48)
[2022-10-14] MEDS: LEVOTHYROXINE 100MCG TABLET (0.1MG) PO SCH (06:13)
[2022-10-14 06:58] VITALS: BP 144/91
[2022-10-14] MEDS: ASPIRIN 81MG ENTERIC TABLET PO SCH (08:28)
[2022-10-14] MEDS: VENLAFAXINE **XR** 75MG CAPSULE PO SCH (08:28)
[2022-10-14] MEDS: METOPROLOL TART 25 MG TABLET PO SCH ×2 (08:28→20:26)
[2022-10-14 18:03] VITALS: BP 131/76
[2022-10-14] MEDS: hydrOXYzine 50 MG TAB PO PRN (20:25)
[2022-10-14] MEDS: DESMOPRESSIN 0.01% SCH (20:26)
[2022-10-14] MEDS: OLANZapine ORAL DISINTEGRATING TAB 5MG PO PRN (23:16)
[2022-10-14] MEDS: PALIPERIDONE 3MG ER TAB (INVEGA) PO SCH (23:17)
[2022-10-15] MEDS: LEVOTHYROXINE 100MCG TABLET (0.1MG) PO SCH (05:29)
[2022-10-15] MEDS: HYDROCORTISONE 5MG TABLET PO SCH ×2 (06:19→14:51)
[2022-10-15 06:20] VITALS: BP 148/100
[2022-10-15] MEDS: ASPIRIN 81MG ENTERIC TABLET PO SCH (09:17)
[2022-10-15] MEDS: VENLAFAXINE **XR** 75MG CAPSULE PO SCH (09:17)
[2022-10-15 09:18] VITALS: BP 134/81
[2022-10-15] MEDS: METOPROLOL TART 25 MG TABLET PO SCH ×2 (09:19→21:27)
[2022-10-15 18:59] VITALS: BP 129/81
[2022-10-15] MEDS: DESMOPRESSIN 0.01% SCH (21:27)
[2022-10-15] MEDS: PALIPERIDONE 3MG ER TAB (INVEGA) PO SCH (21:27)
[2022-10-16] MEDS: HYDROCORTISONE 5MG TABLET PO SCH ×2 (06:06→13:31)
[2022-10-16] MEDS: LEVOTHYROXINE 100MCG TABLET (0.1MG) PO SCH (06:06)
[2022-10-16 07:19] VITALS: BP 135/86
[2022-10-16] MEDS: VENLAFAXINE **XR** 75MG CAPSULE PO SCH (08:08)
[2022-10-16] MEDS: ASPIRIN 81MG ENTERIC TABLET PO SCH (08:08)
[2022-10-16] MEDS: METOPROLOL TART 25 MG TABLET PO SCH ×2 (08:09→20:19)
[2022-10-16 16:16] VITALS: BP 123/72
[2022-10-16] MEDS: DESMOPRESSIN 0.01% SCH (20:19)
[2022-10-16] MEDS: PALIPERIDONE 3MG ER TAB (INVEGA) PO SCH (20:19)
[2022-10-17] MEDS: LEVOTHYROXINE 100MCG TABLET (0.1MG) PO SCH (06:15)
[2022-10-17] MEDS: HYDROCORTISONE 5MG TABLET PO SCH ×2 (06:16→13:29)
[2022-10-17 06:25] VITALS: BP 128/89
[2022-10-17] MEDS: ASPIRIN 81MG ENTERIC TABLET PO SCH (08:01)
[2022-10-17] MEDS: VENLAFAXINE **XR** 75MG CAPSULE PO SCH (08:01)
[2022-10-17] MEDS: METOPROLOL TART 25 MG TABLET PO SCH ×2 (08:01→20:17)
[2022-10-17] MEDS: ACETAMINOPHEN TAB 650MG DOSE (2X325MG) PO PRN ×2 (08:48→17:35)
[2022-10-17 16:34] VITALS: BP 129/75
[2022-10-17] MEDS: DESMOPRESSIN 0.01% SCH (20:17)
[2022-10-17] MEDS: OLANZapine ORAL DISINTEGRATING TAB 5MG PO PRN (20:17)
[2022-10-17] MEDS: PALIPERIDONE 3MG ER TAB (INVEGA) PO SCH (20:17)
[2022-10-18] VITALS (7 sets, daily range): BP systolic 123–154; BP diastolic 67–90
[2022-10-18] MEDS: HYDROCORTISONE 5MG TABLET PO SCH ×2 (06:00→13:22)
[2022-10-18] MEDS: LEVOTHYROXINE 100MCG TABLET (0.1MG) PO SCH (06:07)
[2022-10-18] MEDS: METOPROLOL TART 25 MG TABLET PO SCH ×2 (08:29→20:31)
[2022-10-18] MEDS: ASPIRIN 81MG ENTERIC TABLET PO SCH (08:29)
[2022-10-18] MEDS: VENLAFAXINE **XR** 75MG CAPSULE PO SCH (08:29)
[2022-10-18] MEDS: GI COCKTAIL 50ML BTL(HYOSCYAMINE/MAALOX/LIDOCAINE VISCOUS)(1:3:1) PO PRN (18:44)
[2022-10-18] MEDS: PALIPERIDONE 3MG ER TAB (INVEGA) PO SCH (20:30)
[2022-10-18] MEDS: DESMOPRESSIN 0.01% SCH (20:30)
[2022-10-18] MEDS ORDERED: OLANZapine INTRAMUSCULAR 10MG VIAL IM ONE (22:05)
[2022-10-19] VITALS (9 sets, daily range): BP systolic 118–146; BP diastolic 76–85
[2022-10-19] MEDS: LEVOTHYROXINE 100MCG TABLET (0.1MG) PO SCH (05:32)
[2022-10-19] MEDS: HYDROCORTISONE 5MG TABLET PO SCH ×2 (06:08→13:51)
[2022-10-19] MEDS: ACETAMINOPHEN TAB 650MG DOSE (2X325MG) PO PRN ×2 (08:48→15:45)
[2022-10-19] MEDS: ASPIRIN 81MG ENTERIC TABLET PO SCH (08:49)
[2022-10-19] MEDS: VENLAFAXINE **XR** 75MG CAPSULE PO SCH (08:49)
[2022-10-19] MEDS: METOPROLOL TART 25 MG TABLET PO SCH ×2 (08:49→20:56)
[2022-10-19] MEDS: PALIPERIDONE 3MG ER TAB (INVEGA) PO SCH (20:55)
[2022-10-19] MEDS: DESMOPRESSIN 0.01% SCH (20:55)
[2022-10-19] MEDS: hydrOXYzine 50 MG TAB PO PRN (20:56)
[2022-10-19] MEDS: OLANZapine ORAL DISINTEGRATING TAB 5MG PO PRN (20:56)
[2022-10-20] MEDS: LEVOTHYROXINE 100MCG TABLET (0.1MG) PO SCH (05:30)
[2022-10-20] MEDS: HYDROCORTISONE 5MG TABLET PO SCH ×2 (06:06→14:00)
[2022-10-20 06:14] VITALS: BP 120/67
[2022-10-20] MEDS: VENLAFAXINE **XR** 75MG CAPSULE PO SCH (09:50)
[2022-10-20] MEDS: ASPIRIN 81MG ENTERIC TABLET PO SCH (09:51)
[2022-10-20] MEDS: METOPROLOL TART 25 MG TABLET PO SCH ×2 (09:51→21:29)
[2022-10-20 10:02] VITALS: BP 138/90
[2022-10-20 18:57] VITALS: BP 128/96
[2022-10-20] MEDS: OLANZapine ORAL DISINTEGRATING TAB 5MG PO PRN (21:20)
[2022-10-20] MEDS: DESMOPRESSIN 0.01% SCH (21:20)
[2022-10-20] MEDS: hydrOXYzine 50 MG TAB PO PRN (21:20)
[2022-10-20] MEDS: PALIPERIDONE 3MG ER TAB (INVEGA) PO SCH (21:21)
[2022-10-21] MEDS: LEVOTHYROXINE 100MCG TABLET (0.1MG) PO SCH (05:52)
[2022-10-21 06:34] VITALS: BP 136/87
[2022-10-21] MEDS: HYDROCORTISONE 5MG TABLET PO SCH ×2 (06:45→14:16)
[2022-10-21] MEDS: ASPIRIN 81MG ENTERIC TABLET PO SCH (08:02)
[2022-10-21] MEDS: VENLAFAXINE **XR** 75MG CAPSULE PO SCH (08:03)
[2022-10-21] MEDS: METOPROLOL TART 25 MG TABLET PO SCH ×2 (08:04→20:25)
[2022-10-21 17:49] VITALS: BP 123/75
[2022-10-21] MEDS: PALIPERIDONE 3MG ER TAB (INVEGA) PO SCH (20:24)
[2022-10-21] MEDS: ACETAMINOPHEN TAB 650MG DOSE (2X325MG) PO PRN (20:25)
[2022-10-21] MEDS: DESMOPRESSIN 0.01% SCH (20:25)
[2022-10-22] MEDS: LEVOTHYROXINE 100MCG TABLET (0.1MG) PO SCH (06:14)
[2022-10-22] MEDS: HYDROCORTISONE 5MG TABLET PO SCH ×2 (06:14→14:38)
[2022-10-22 06:57] VITALS: BP 123/80
[2022-10-22 09:09] VITALS: BP 131/93
[2022-10-22] MEDS: ASPIRIN 81MG ENTERIC TABLET PO SCH (09:10)
[2022-10-22] MEDS: METOPROLOL TART 25 MG TABLET PO SCH ×2 (09:10→21:04)
[2022-10-22] MEDS: VENLAFAXINE **XR** 75MG CAPSULE PO SCH (09:11)
[2022-10-22 15:57] VITALS: BP 123/5
[2022-10-22] MEDS: GI COCKTAIL 50ML BTL(HYOSCYAMINE/MAALOX/LIDOCAINE VISCOUS)(1:3:1) PO PRN (17:45)
[2022-10-22] MEDS: IBUPROFEN 800 MG TAB PO PRN (21:03)
[2022-10-22] MEDS: PALIPERIDONE 3MG ER TAB (INVEGA) PO SCH (21:03)
[2022-10-22] MEDS: DESMOPRESSIN 0.01% SCH (21:05)
[2022-10-23] MEDS: LEVOTHYROXINE 100MCG TABLET (0.1MG) PO SCH (06:18)
[2022-10-23] MEDS: HYDROCORTISONE 5MG TABLET PO SCH ×2 (06:18→13:31)
[2022-10-23 07:00] VITALS: BP 136/87
[2022-10-23] MEDS: VENLAFAXINE **XR** 75MG CAPSULE PO SCH (08:54)
[2022-10-23] MEDS: ASPIRIN 81MG ENTERIC TABLET PO SCH (08:54)
[2022-10-23] MEDS: METOPROLOL TART 25 MG TABLET PO SCH ×2 (08:55→20:14)
[2022-10-23] MEDS: GI COCKTAIL 50ML BTL(HYOSCYAMINE/MAALOX/LIDOCAINE VISCOUS)(1:3:1) PO PRN (15:54)
[2022-10-23] MEDS: IBUPROFEN 800 MG TAB PO PRN (17:42)
[2022-10-23 17:44] VITALS: BP 141/82
[2022-10-23] MEDS: DESMOPRESSIN 0.01% SCH (20:12)
[2022-10-23] MEDS: PALIPERIDONE 3MG ER TAB (INVEGA) PO SCH (20:14)
[2022-10-23] MEDS: hydrOXYzine 50 MG TAB PO PRN (20:14)
[2022-10-23] MEDS: OLANZapine ORAL DISINTEGRATING TAB 5MG PO PRN (20:14)
[2022-10-23] MEDS ORDERED: OLANZapine ORAL DISINTEGRATING TAB 5MG PO PRN (21:15)
[2022-10-24 06:00] VITALS: BP 130/79
[2022-10-24] MEDS: LEVOTHYROXINE 100MCG TABLET (0.1MG) PO SCH (06:06)
[2022-10-24] MEDS: HYDROCORTISONE 5MG TABLET PO SCH ×2 (06:35→13:50)
[2022-10-24 09:48] VITALS: BP 139/93
[2022-10-24] MEDS: VENLAFAXINE **XR** 75MG CAPSULE PO SCH (09:49)
[2022-10-24] MEDS: ASPIRIN 81MG ENTERIC TABLET PO SCH (09:49)
[2022-10-24] MEDS: METOPROLOL TART 25 MG TABLET PO SCH ×2 (09:49→20:52)
[2022-10-24 18:00] VITALS: BP 126/79
[2022-10-24] MEDS: PALIPERIDONE 3MG ER TAB (INVEGA) PO SCH (20:51)
[2022-10-24] MEDS: DESMOPRESSIN 0.01% SCH (20:52)
[2022-10-25] MEDS: LEVOTHYROXINE 100MCG TABLET (0.1MG) PO SCH (05:43)
[2022-10-25] MEDS: HYDROCORTISONE 5MG TABLET PO SCH ×2 (06:34→14:21)
[2022-10-25 06:45] VITALS: BP 128/96
[2022-10-25 09:55] VITALS: BP 138/88
[2022-10-25] MEDS: ASPIRIN 81MG ENTERIC TABLET PO SCH (09:55)
[2022-10-25] MEDS: VENLAFAXINE **XR** 75MG CAPSULE PO SCH (09:56)
[2022-10-25] MEDS: METOPROLOL TART 25 MG TABLET PO SCH ×2 (09:56→21:14)
[2022-10-25] MEDS: IBUPROFEN 800 MG TAB PO PRN (15:54)
[2022-10-25 18:45] VITALS: BP 123/83
[2022-10-25] MEDS ORDERED: VENL75CA47 PO (19:38)
[2022-10-25] MEDS ORDERED: PALI1TAB2 PO (19:38)
[2022-10-25] MEDS ORDERED: LEVO100T5 PO (19:38)
[2022-10-25] MEDS: DESMOPRESSIN 0.01% SCH (21:13)
[2022-10-25] MEDS: PALIPERIDONE 3MG ER TAB (INVEGA) PO SCH (21:13)
[2022-10-25] MEDS: ACETAMINOPHEN TAB 650MG DOSE (2X325MG) PO PRN (21:43)
[2022-10-25] MEDS ORDERED: DICLOFENAC EPOLAMINE 1.3% PATCH TOP PRN (22:45)
[2022-10-26] MEDS: HYDROCORTISONE 5MG TABLET PO SCH ×2 (06:07→13:30)
[2022-10-26] MEDS: LEVOTHYROXINE 100MCG TABLET (0.1MG) PO SCH (06:08)
[2022-10-26 06:43] VITALS: BP 140/90
[2022-10-26] MEDS: VENLAFAXINE **XR** 75MG CAPSULE PO SCH (09:57)
[2022-10-26] MEDS: ASPIRIN 81MG ENTERIC TABLET PO SCH (09:58)
[2022-10-26 10:00] VITALS: BP 128/86
[2022-10-26] MEDS: METOPROLOL TART 25 MG TABLET PO SCH (10:00)
== END 2022-10-26 16:37 | disposition home or self-care (01) | DRG 754 ==
LOC: M ED 13:46 → M ED INP 20:50 → M PSY 10-08 01:01
PROVIDERS: ADMIT Psychiatry & Neurology Psychiatry; ATTEND Psychiatry & Neurology Psychiatry
DX: F32.A Depression, unspecified (principal); E23.2 Diabetes insipidus; E23.0 Hypopituitarism; E66.01 Morbid (severe) obesity due to excess calories; R45.851 Suicidal ideations; I48.91 Unspecified atrial fibrillation; K21.9 Gastro-esophageal reflux disease without esophagitis; Z78.1 Physical restraint status; I10 Essential (primary) hypertension; E03.9 Hypothyroidism, unspecified; F41.9 Anxiety disorder, unspecified; R07.89 Other chest pain; F60.3 Borderline personality disorder; R74.01 Elevation of levels of liver transaminase levels; Z79.82 Long term (current) use of aspirin; Z79.899 Other long term (current) drug therapy; Z88.2 Allergy status to sulfonamides; Z87.890 Personal history of sex reassignment; Z20.822 Contact with and (suspected) exposure to COVID-19; Z91.52 Personal history of nonsuicidal self-harm; Z56.0 Unemployment, unspecified; S42.122A Displaced fracture of acromial process, left shoulder, initial encounter for closed fracture; W06.XXXA Fall from bed, initial encounter; Y92.230 Patient room in hospital as the place of occurrence of the external cause

== ENCOUNTER 2022-10-29 06:07 | Emergency (ER) | payer OTHER ==
[~2022-10-29 06:07] MED LIST changes: +HYDR-4468 PO; +LEVO100T5 PO; +LEVOTHYROXINE 100MCG TABLET (0.1MG) PO SCH; +PALI1TAB2 PO; +VENL75CA47 PO
[2022-10-29] MEDS ORDERED: DESM1SPR NARES (08:06)
[2022-10-29] MEDS ORDERED: METO25TA4 PO (08:06)
[2022-10-29] MEDS ORDERED: LEVO200T4 PO (08:06)
[2022-10-29] MEDS ORDERED: ASPI81TA26 PO (08:06)
[2022-10-29] MEDS ORDERED: PALI1TAB2 PO (08:06)
[2022-10-29] MEDS ORDERED: VENL75CA47 PO (08:06)
[2022-10-29] MEDS ORDERED: MECL-136 PO (08:06)
[2022-10-29] MEDS ORDERED: [UNRECOGNIZED DRUG - CODE] PO (08:07)
[2022-10-29] MEDS ORDERED: HOME MED LIST COMPLETE! XX SCH (08:10)
[2022-10-29] MEDS ORDERED: HYDROCORTISONE 5MG TABLET PO SCH ×2 (09:00→14:00)
[2022-10-29] MEDS ORDERED: METOPROLOL TART 25 MG TABLET PO SCH (09:00)
[2022-10-29] MEDS ORDERED: MECLIZINE 12.5 MG TAB PO PRN (11:30)
[2022-10-29] MEDS ORDERED: DESMOPRESSIN 0.01% SCH (11:45)
[2022-10-29] MEDS ORDERED: DESMOPRESSIN 0.01% ONE ×2 (11:45→21:00)
[2022-10-29 11:59] VITALS: BP 136/86
[2022-10-29] MEDS ORDERED: ENTER DRUG NAME HERE (PATIENT'S OWN MED) PO SCH (21:00)
[2022-10-29] MEDS ORDERED: PALIPERIDONE 3MG ER TAB (INVEGA) PO SCH (21:00)
[2022-10-29] MEDS ORDERED: VENLAFAXINE **XR** 75MG CAPSULE PO SCH (21:00)
[2022-10-29] MEDS ORDERED: ETHINYL ESTRADIOL PO SCH (21:00)
[2022-10-29] MEDS ORDERED: NORETHINDRONE PO SCH (21:00)
[2022-10-29] MEDS ORDERED: ASPIRIN 81MG CHEW TABLET PO SCH (21:00)
[2022-10-30] MEDS ORDERED: DESMOPRESSIN 0.01% SCH (21:00)
== END 2022-10-29 14:54 | disposition home or self-care (01) ==
LOC: M ED 06:07
DX: F43.9 Reaction to severe stress, unspecified (principal); F43.10 Post-traumatic stress disorder, unspecified; Z88.2 Allergy status to sulfonamides; Z79.899 Other long term (current) drug therapy; Z79.82 Long term (current) use of aspirin

== ENCOUNTER 2022-11-03 11:31 | Emergency (ER) | payer OTHER ==
[~2022-11-03 11:31] MED LIST changes: +ASPI81TA26 PO; +DESM1SPR NARES; +LEVO200T4 PO; -LEVOTHYROXINE 100MCG TABLET (0.1MG) PO SCH; +METO25TA4 PO; +[UNRECOGNIZED DRUG - CODE] PO
[2022-11-03 12:51] LABS: HEMATOCRIT 33.5 % (36.0-47.0); HEMOGLOBIN 11.4 g/dl (12.0-15.5); MEAN CORPUSCULAR HEMOGLOBIN 30.8 pg (27.0-33.0); MEAN CORPUSCULAR VOLUME 90.5 fl (80.0-96.0); PLATELET COUNT, AUTOMATED 195 10^3/uL (150-450); WHITE BLOOD COUNT 3.2 10^3/uL (4.0-10.0)
[2022-11-03 13:14] LABS: ETHYL ALCOHOL (ETHANOL) 0.006 % (0.000-0.010)
[2022-11-03 13:15] LABS: HCG, SERUM QUALITATIVE NEGATIVE (NEGATIVE)
[2022-11-03 13:16] LABS: ACETAMINOPHEN LEVEL < 2.0 UG/ML (10.0-20.0); ALBUMIN 3.3 G/DL (3.2-5.2); ALKALINE PHOSPHATASE 121 U/L (46-116); ALT/SGPT 140 U/L (7.0-40); AST/SGOT 72 U/L (<34); BILIRUBIN,DIRECT 0.4 MG/DL (<0.4); BILIRUBIN,TOTAL 1.2 MG/DL (0.3-1.2); BLOOD UREA NITROGEN 15 MG/DL (9-23); CALCIUM LEVEL 8.8 MG/DL (8.5-10.1); CARBON DIOXIDE LEVEL 28 MMOL/L (20-31); CHLORIDE LEVEL 108 MMOL/L (98-107); CREATININE FOR GFR 0.68 MG/DL (0.55-1.30); GLOMERULAR FILTRATION RATE > 60.0 (>60); GLUCOSE, FASTING 88 MG/DL (60-100); POTASSIUM SERUM 4.1 MMOL/L (3.5-5.1); SALICYLATE LEVEL < 3.0 MG/DL (<30); SODIUM LEVEL 141 MMOL/L (136-145); TOTAL PROTEIN 6.6 G/DL (5.7-8.2)
[2022-11-03 13:19] LABS: THYROID STIMULATING HORMONE 0.029 uIU/ML (0.55-4.78)
[2022-11-03 13:25] LABS: AMPHETAMINES LEVEL URINE NEGATIVE (NEGATIVE); BARBITURATES URINE NEGATIVE (NEGATIVE); BENZODIAZEPINES URINE NEGATIVE (NEGATIVE); COCAINE METABOLITE URINE NEGATIVE (NEGATIVE); METHADONE URINE NEGATIVE (NEGATIVE); OPIATES URINE NEGATIVE (NEGATIVE); PHENCYCLIDINE URINE NEGATIVE (NEGATIVE)
[2022-11-03 13:26] LABS: CANNABINOIDS URINE NEGATIVE (NEGATIVE)
[2022-11-03] MEDS ORDERED: HOME MED LIST COMPLETE! XX SCH (17:15)
[2022-11-03 17:25] VITALS: BP 154/90
[2022-11-03] MEDS ORDERED: DESMOPRESSIN 0.01% SCH (21:00)
== END 2022-11-03 22:21 | disposition home or self-care (01) ==
LOC: M ED 11:31
DX: R45.851 Suicidal ideations (principal); I10 Essential (primary) hypertension; K21.9 Gastro-esophageal reflux disease without esophagitis; F32.9 Major depressive disorder, single episode, unspecified; Z79.82 Long term (current) use of aspirin; Z79.899 Other long term (current) drug therapy; Z88.2 Allergy status to sulfonamides